=== PATIENT | male | born 1930 | race Caucasian/White ===

== ENCOUNTER → 2016-09-30 | Outpatient (CLI) | payer OTHER ==
[~2016-09-30] MED LIST: ASA81BEC PO; AVODART0.5 MG PO; CALCIUM CITRATE PO; CLARITIN10 M2 PO; FISH OIL 1,001000 M2 PO; GERITOL COMPLE1 EAC2 PO; L-LYSINE1000 M1 PO; LISINOPRIL10 MG PO; OSTEO BI-FLEX1 EAC2 PO; PRAVACHOL40 MG PO; SLO-NIACIN750 MG PO; VITAMIN D1000 UNI1 PO; VITAMINC500 PO
== END ==
LOC: RAD 09:26
DX: M47.816 Spondylosis without myelopathy or radiculopathy, lumbar region (principal); M54.89 Other dorsalgia

== ENCOUNTER → 2016-10-16 | Outpatient (CLI) | payer OTHER ==
[~2016-10-16] VITALS: Ht 177.8 cm; Wt 86.2 kg
--- NOTE | ~2016-10-16 | HPC ---
[facility] [place] [address] PAIN MANAGEMENT CONSULTATION Name: JOSE DUPREE Taisha Room #: REG [facility] Holden.#: [id number] Admission: 10/16/16 Attend Phys: Sue Mtz MD Discharge: Date of : 30 Report #: [id number] THIS REPORT FOR: //name// CC: Sue Cox MD DATE OF SERVICE: 10/16/2016 PRIMARY CARE PHYSICIAN: Roman Cox M.D. CHIEF COMPLAINT: "Pain in my right leg, in the thigh with numbness, weakness and tenderness". HISTORY OF PRESENT ILLNESS: The patient is an 86-year-old gentleman who has been referred to the pain clinic for evaluation. The patient states that he has noted some pain and discomfort in his right anterior thigh. He notes that this is weak. He has not fallen. He rates it as a 10/10. Pain is worse with standing. He notes that the pain started at the end of August, very close to the beginning of September. He denies any trauma. He denies any similar history in the past. No change in bowel or bladder function. ALLERGIES: No known drug allergies. MEDICATIONS: Niacin 750 mg tablets, vitamin D, Claritin 10 mg, aspirin 81 mg, ascorbic acid 500 mg, fish oil, calcium, glucosamine chondroitin, Lysine 1 gram, iron/Geritol, pravastatin 40 mg, Zestril 10 mg and Avodart 0.5 mg. PAST MEDICAL HISTORY: Hypertension and hypercholesterolemia. PAST SURGICAL HISTORY: Lump from his chest 35 years ago. 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 Denies use of tobacco. Denies use of alcoholic beverages. Denies use of illegal drugs. REVIEW OF SYSTEMS: A 14-point review of systems questionnaire indicates generally good health, weakness in the right anterior thigh. Otherwise, unremarkable. LABORATORY DATA: MRI of the lumbar spine, dated 10/05/2016, reveals L3-L4 right dqcleyt-xy-ndvanqd disk protrusion present, but this protrusion contacts and superiorly displaces the exiting right L3 nerve root. The L3 neural foramen shows mild encroachment. The canal is without stenosis. Thecal sac is 10.0 cm AP. L4-L5 disk bulge presented without disk protrusion. Mild effacement of bilateral exiting neural foramen. Thecal sac 1.0 cm AP. Lumbar spine series, [facility] [address] [place] [address] PAIN MANAGEMENT CONSULTATION Name: JOSE DUPREE Room #: REG [facility]#: [id number] Admission: 10/16/16 Attend Phys: Sue Mtz MD Discharge: Date of : 30 Report #: [id number] dated 09/30/2016, reveals mild multilevel lumbar spondylosis with slight anterolisthesis of L4 on L5. No compression fractures. PHYSICAL EXAMINATION: VITAL SIGNS: Blood pressure 135/72, pulse 64, respiratory rate 16 and room air saturation is 98%. Height 5 feet 10, weight 86 kg and BMI 27. NEUROLOGIC: The patient walks with a slight antalgic gait, regarding his right leg. He complains of decreased sensation to pinprick, light touch and muscle strength in the anterior L3-L4 distribution on the right. IMPRESSION: Lumbar radiculopathy with right L3-L4 distribution numbness, tingling and weakness as a result of compression on the nerve from a lumbar disk protrusion. RECOMMENDATIONS: We discussed the treatment options with the patient. A model was used to indicate the area of probable pathology. Risks and benefits of an epidural steroid injection were discussed. Possible complications which could include but are not limited to bleeding, infection, headache and muscle weakness were discussed and the patient elects to proceed. PROCEDURE NOTE: The patient was placed in the prone position. Fluoroscopy was used to identify the L3-L4 interspace. This area had been sterilely prepped with Betadine and infiltrated with 0.25% bupivacaine. Total of 80 mg Depo-Medrol, 40 mg triamcinolone and 2 mL of 0.25% bupivacaine was injected. The patient tolerated the procedure well. There were no complications. His pain decreased from 10 to 5 at the time of discharge. A 16 seconds fluoroscopy time was used. We would like to thank you for letting us participate in his care. We hope he continues to improve. By: [id number] Sue Mtz MD /shady
[2016-10-16 10:12] VITALS: BP 135/72
== END ==
LOC: PAIN 06:44
DX: M51.16 Intervertebral disc disorders with radiculopathy, lumbar region (principal); I10 Essential (primary) hypertension; E78.00 Pure hypercholesterolemia, unspecified

== ENCOUNTER → 2016-11-08 | Outpatient (CLI) | payer OTHER ==
[~2016-11-08] VITALS: Ht 177.8 cm; Wt 81.6 kg
[~2016-11-08] MED LIST changes: +HYDROCODONE-AP1 EAC6 PO
--- NOTE | ~2016-11-08 | HPC ---
[facility] [place] [address] PAIN MANAGEMENT CONSULTATION Name: LEIAJOSE Taisha Room #: REG [facility] HoldenKay#: [id number] Admission: 11/08/16 Attend Phys: Sue Mtz MD Discharge: Date of : 30 Report #: [id number] THIS REPORT FOR: //name// CC: Sue Cox DATE OF SERVICE: 11/08/2016 PRIMARY CARE PHYSICIAN: Roman Cox M.D. FOLLOWUP COMPLAINT: Continued pain in the right leg, was improved, but still painful and weak. FOLLOWUP HISTORY: The patient is an 86-year-old gentleman who has been referred to the pain clinic for evaluation. An MRI indicated L3 neural foraminal encroachment, L3-L4 right foraminal disk protrusion present. This contacts and superiorly displaces the exiting L3 nerve root. The patient continues to have pain and discomfort in the anterior thigh on the right side. He notes weakness and difficulty ambulating because of this. Pain is quite problematic. He feels that another injection could be and would be helpful and agrees to proceed. RECOMMENDATIONS: We discussed treatment options with the patient. Risks and benefits of an epidural steroid injection using the transforaminal approach was described to the patient. Possible complications of the procedure were reviewed and the patient elects to proceed. PROCEDURE NOTE: The patient was placed in the prone position. He noted severe pain and discomfort while lying flat. We attempted to do a transforaminal epidural steroid injection with the patient on his left lateral decubitus position. This was somewhat problematic. We again had the patient lie on the table in the prone position. His back was sterilely prepped in the L3-L4 interspace. A 20-gauge spinal needle was then advanced using the transforaminal approach. After appropriate placement, a total of 2 mL of 0.25% bupivacaine was injected. The patient states that his pain began rapidly to decrease. He was then given a total of 80 mg Depo-Medrol and an additional 3 mL of 0.25% bupivacaine. The patient remained in the pain clinic for an appropriate amount of time. His pain totally resolved in that dermatomal area. He remained from 11 o'clock to 2 o'clock at which time the numbing medicine has totally worn out and the patient was able to walk. He left with zero pain. He [place] [address] PAIN MANAGEMENT CONSULTATION Name: JOSE DUPREE Room #: REG [facility] Hunter#: [id number] Admission: 11/08/16 Attend Phys: Sue Mtz MD Discharge: Date of : 30 Report #: [id number] We would like to thank you for letting us participate in his care. We hope he continues to improve. By: [id number] Sue Mtz MD /nt
[2016-11-08 10:29] VITALS: BP 142/78
== END | disposition home or self-care (01) ==
LOC: PAIN 06:34
DX: M51.36 Other intervertebral disc degeneration, lumbar region (principal); M54.16 Radiculopathy, lumbar region; M48.06 Spinal stenosis, lumbar region

== ENCOUNTER → 2016-11-20 | Outpatient (CLI) | payer OTHER ==
[~2016-11-20] VITALS: Ht 177.8 cm; Wt 84.6 kg
--- NOTE | ~2016-11-20 | HPC ---
[facility] [address] [place] [address] PAIN MANAGEMENT CONSULTATION Name: LEIAJOSE Taisha Room #: REG [facility] NeenaKayRadha.#: [id number] Admission: 11/20/16 Attend Phys: Sue Mtz MD Discharge: Date of : 30 Report #: [id number] THIS REPORT FOR: //name// CC: Sue Cox DATE OF SERVICE: 11/20/2016 FOLLOWUP COMPLAINT: Still having some pain in my right leg and the physical therapy is helping. FOLLOWUP HISTORY: The patient is an 86-year-old gentleman, who has been seen in the pain clinic because of L3 lumbar radicular pain down into the right anterior thigh. He has undergone a transforaminal epidural steroid injection and noted some improvement. He feels that overall things are improving. He is able to ambulate better. He has not fallen since we saw him last. He continues to wear a back support and finds that this is helpful. He is undergoing physical therapy and continues to do physical therapy exercises at home. He still has pain and discomfort. He finds that the hydrocodone medication makes things more tolerable. He continues to increase his level of activity. He is not having bowel or bladder dysfunction. He is taking MiraLax to help keep his bowels regular. PHYSICAL EXAMINATION: Blood pressure 121/56, pulse 70, respiratory rate 16, room air saturation 98%. Height 5 feet 10 inches, weight 177 pounds, BMI is 26. The patient continues to have some pain in the right anterior thigh area. He is having less pain then prior to his treatments. He feels at this juncture to continue with his medications of hydrocodone would be reasonable and may consider another injection in the future. Pain is still problematic with standing, walking and improves when he lies down flat. IMPRESSION: 1. Lumbar radiculopathy with right L3-L4 distribution with numbness, tingling and weakness. Secondary to compression of the nerve from a lumbar disk protrusion. 2. Arthritis. RECOMMENDATIONS: We discussed treatment options with the patient. At this juncture, we will continue with a conservative approach. He will continue to use hydrocodone 5/325 one p.o. every 4-6 hours p.r.n. pain. He will continue to do the exercises provided by the physical therapist. He will consider another epidural steroid injection [place] [address] PAIN MANAGEMENT CONSULTATION Name: JOSE DUPREE Room #: REG MAYDA ChaudharyFlorencia#: [id number] Admission: 11/20/16 Attend Phys: Sue Mtz MD Discharge: Date of : 30 Report #: [id number] We would like to thank you for letting us participate in his care. We hope he continues to improve. <ELECTRONICALLY SIGNED> By: Sue Mtz MD 11/21/16 0820 1212 1418 MD angelina Lopez
[2016-11-20 10:09] VITALS: BP 121/56
== END ==
LOC: PAIN 06:47
DX: M54.16 Radiculopathy, lumbar region (principal); M19.90 Unspecified osteoarthritis, unspecified site; F10.21 Alcohol dependence, in remission

== ENCOUNTER 2018-07-09 04:59 | Inpatient (IN) | payer OTHER ==
[~2018-07-09] VITALS: Ht 177.8 cm; Wt 86.2 kg
--- NOTE | ~2018-07-09 | H ---
[facility] [place] [address] HISTORY AND PHYSICAL Name: JOSE DUPREE Taisha Room #: 429-P [facility] IN .R.#: [id number] Admission: 07/09/18 Attend Phys: Roman Cox MD Discharge: Date of : 30 Report #: [id number] THIS REPORT FOR: //name// CC: Roman Cox DATE OF SERVICE: 07/09/2018 CHIEF COMPLAINT: Witnessed seizure. HISTORY OF PRESENT ILLNESS: Information is obtained from the medical record. 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 He was unresponsive at times, he was grasping for breath, his neck was stiff. His behavior lasted for a period of time and then turned into being combative and confused behavior. By that time the paramedics came. His did not actually see tonic-clonic movements. When he came to the Emergency Department, his combativeness ceased and he resumed his regular mental status. The patient himself had no recollection of the event until he "woke up" in the Emergency Room. Evaluation there was negative. He had never had a seizure disorder, stroke or head injury prior to this event. Admission was indicated for further evaluation. Note is made that he has never had an observed seizure, does not drink alcohol, and was not taking any medications that lower the seizure threshold. There were perhaps 2 episodes of questionable events, recent episode of syncope of about a year in the past after which he was seen by a neurologist and an EEG was performed. Those results are not immediately available, but his recalls them being unremarkable. There was perhaps the same or a second episode several months ago where he was sitting on the ground for a prolonged period of time and then suddenly had a near syncopal episode where he sort of laid over on his side, but did not completely lose consciousness. He recovered his strength, then got up and drove himself home. PAST MEDICAL HISTORY: He has an elevated blood pressure for which he takes low dose 10 mg lisinopril, elevated cholesterol on 80 mg of pravastatin and urinary frequency for which he takes Avodart daily. MEDICATIONS: Lisinopril 10 mg daily, pravastatin 80 mg daily, Avodart 1 tablet daily. FAMILY HISTORY: Noncontributory. SOCIAL HISTORY: He lives in an independent apartment in a senior facility with his of many years. He stopped smoking in the 1960s. He drinks an occasional glass of wine. He is retired from [employer] [place] [address] HISTORY AND PHYSICAL Name: JOSE DUPREE Room #: 429-P [facility] IN ..#: [id number] Admission: 07/09/18 Attend Phys: Roman Cox MD Discharge: Date of : 30 Report #: [id number] REVIEW OF SYSTEMS: Negative except for developing a reddish discoloration on the bridge of his nose and getting splotches of redness in his face. OBJECTIVE: GENERAL: He was awakened from sleep. HEENT: Unremarkable. LUNGS: Clear. CARDIOVASCULAR: Heart tones are normal and regular. ABDOMEN: Soft, nontender, without hepatosplenomegaly or masses. EXTREMITIES: There is no edema in extremities. There are no focal neurological deficits. The patient was not ambulated by me at the time of the examination. Remarkable laboratory is significant for a lactic acid level from 5:00 this morning when he first arrived at the Emergency Room that is elevated at 2.9. It was repeated 12 hours later after receiving IV fluids and is now 0.5. Hemoglobin is mildly low at 13.0. Drug screen is negative. Urinalysis is negative. 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 Dr. 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 Chest x-ray shows minor strand-like atelectasis in the left lung base when compared with one of 5 years ago. ASSESSMENT: The patient appears to have had a seizure in the middle of the night based on his "postictal" behavior with the paramedics that cleared in the Emergency Room, the 's description of his stiffness and gasping for breath and the elevated lactic acid level soon after his arrival in the Emergency Room that normalized when repeated 12 hours later. Neurology consultation has been obtained and EEG is to be done. ADDITIONAL DIAGNOSIS: Mildly elevated TSH. By: [id number] Roman Cox MD /nt
[2018-07-09 05:01] VITALS: BP 143/65
[2018-07-09 05:23] LABS: ABSOLUTE NEUTROPHILS 3.5 thou/uL (1.4-8.2); BASOPHILS 0.4 % (0.0-2.0); EOSINOPHILS 3.3 % (0.0-3.0); HEMATOCRIT 38.7 % (42.0-52.0); LYMPHOCYTES 35.3 % (24.0-44.0); MCH 32.4 pg (26.0-34.0); MCHC 33.5 g/dL (28.0-37.0); MCV 96.7 fL (80.0-100.0); MONOCYTES 6.7 % (1.0-8.0); PLATELET COUNT 182 thou/uL (150-400); POLYS 54.3 % (36.0-66.0); RDW 13.7 % (10.5-14.5); WBC 6.5 thou/uL (4.0-11.0)
[2018-07-09 05:36] LABS: ANION GAP 11 mmol/L (7-16); BUN 25 mg/dL (7-18); CALCIUM 9.1 mg/dL (8.5-10.1); CHLORIDE 106 mmol/L (98-107); CO2 25 mmol/L (21-32); CREATININE 1.2 mg/dL (0.7-1.3); GLUCOSE 111 mg/dL (74-106); POTASSIUM 3.8 mmol/L (3.5-5.1); SODIUM 142 mmol/L (136-145)
[2018-07-09 05:45] LABS: ALBUMIN 3.7 g/dL (3.4-5.0); SGOT 19 U/L (15-37); SGPT 22 U/L (30-65); TOTAL BILIRUBIN 0.4 mg/dL (<0.1-1.0); TOTAL PROTEIN 6.7 g/dL (6.4-8.2); TROPONIN-I <0.06 ng/mL (<0.06)
[2018-07-09 06:06] LABS: URINE BILIRUBIN NEGATIVE (Negative); URINE BLOOD NEGATIVE (Negative); URINE CLARITY CLEAR; URINE COLOR YELLOW; URINE GLUCOSE-RANDOM* NEGATIVE (Negative); URINE KETONES NEGATIVE (Negative); URINE LEUKOCYTES-REFLEX NEGATIVE (Negative); URINE NITRITE-REFLEX NEGATIVE (Negative); URINE PROTEIN (DIPSTICK) NEGATIVE (Negative); URINE SPECIFIC GRAVITY >= 1.030 (1.005-1.035); URINE UROBILINOGEN 0.2 E.U./dl (0.2-1.0)
[2018-07-09 06:14] LABS: AMP/METHAMP Negative (Negative); BARBITURATES Negative (Negative); BENZODIAZEPINES Negative (Negative); COCAINE Negative (Negative); METHADONE Negative (Negative); OPIATES Negative (Negative); PCP Negative (Negative)
[2018-07-09 07:03] LABS: LARGE PLATELETS RARE
--- NOTE | 2018-07-09 09:21 | EKG ---
[place] [address] NOW! 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 : 1930 Requested By: Angelika Timmons Order Number: [id number] MD: Christ Parker Measurements Intervals [place] Rate: 80 P: 23 NE: 213 QRS: -46 QRSD: 143 T: 35 QT: 394 QTc: 455 Interpretive Statements Sinus rhythm Borderline prolonged NE interval RBBB and LAFB Compared to ECG 11/28/2013 09:29:02 Atrial premature complex(es) no longer present Electronically Signed On 07-09-2018 9:21:00 AUTO LOCATOR by Christ Parker [email or web address] <ELECTRONICALLY SIGNED> By: Christ Parker MD, [facility] 07/09/18 0921 9 Christ Parker MD, [facility] /EPI
[2018-07-09 11:04] VITALS: BP 134/54
[2018-07-09 11:35] VITALS: BP 116/61
--- NOTE | 2018-07-09 14:39 | NUR ---
ASSESSMENT-PT LIVES IN A SR APT WITH HIS WHO USES A WALKER WITH A SEAT TO GET AROUND. PT WALKS ON HIS OWN AND DOES HIS OWN ADLS. PT DRIVES BUT DOES NOT. FRIEND AT BEDSIDE DROVE TO HOSPITAL. THEY HAVE A CLEANING PERSON. THEY SHARE THE COOKING AND LAUNDRY. HAS 2 NIECES IN [place]. PT HAS NOT HAD ANY HH SERVICES. FOLLOWING TO ASSIST WITH DC PLANNING.
[2018-07-09 15:15] VITALS: BP 126/71
[2018-07-09 16:28] VITALS: BP 101/47
[2018-07-09 20:15] VITALS: BP 124/48
[2018-07-10 04:19] VITALS: BP 118/47
--- NOTE | 2018-07-10 06:42 | NUR ---
ASSUMED CARE AT 1900, ASSESSMENT COMPLETED. NO PAIN, NAUSEA, OR SOB. PLACED UNDER SEIZURE PRECAUTIONS, NEURO ASSESSMENT NORMAL. PT IMPULSIVE OUT OF BED MULTIPLE TIMES, ATTEMPTING TO USE URINAL AND GETTING LESS THAN 50 ML OUT. BLADDER SCAN SHOWED >500 ML, OBTAINED ORDER TO STRAIGHT CATH BUT ONLY ABLE TO COLLECT 350 ML. STOPPED IV FLUIDS. REPEAT BLADDER SCAN THIS AM SHOWED ONLY 320 ML, WILL ASK DAY SHIFT TO REPEAT WITH AM VS, POSSIBLE CATH AGAIN. NO OTHER CONCERNS, WILL CONTINUE TO MONITOR.
[2018-07-10 08:16] VITALS: BP 125/59
--- NOTE | 2018-07-10 14:04 | NUR ---
ASSUMED CARE THIS AM, SHIFT ASSESSMENT DONE, MEDS GIVEN, VSS. BLADDER SCAN DONE THIS AM, NO RESIDUAL FOUND. PATIENT WAS ABLE TO URINATE 250 MLS OF URINE THIS AM. HAD A BOWEL MOVEMENT. FAMILY MEMBERS PRESENT AT BEDSIDE. NO CONCERNS EXPRESSED AT THIS TIME BY THE PATIENT. WILL CONTINUE TO ASSESS AND ASSIST WITH ADLs NEEDED.
--- NOTE | 2018-07-10 16:22 | NUR ---
NIECE PONCHO HERE AND ASKING ABOUT ASSISTED LIVING RESOURCES FOR PT AND HIS . THIS WAS PROVIDED TO HER. SHE AND HER SISTER ASSIST PT AND WITH THEIR AFFAIRS.
[2018-07-10 16:35] VITALS: BP 139/59
[2018-07-10 18:21] VITALS: BP 134/72
--- NOTE | 2018-07-10 19:24 | NUR ---
PT CAME IN TO UNIT AT 1800H. PT BROUGHT IN BY STAFF ON WHEELCHAIR. PT ACCOMPANIED BY . PT A&O X4. PT STATES NO PAIN. PT ORIENTED TO UNIT AND EDUCATED TO USE CALL LIGHT. PT HAS NO S/S OF DISTRESS. PT'S PHYSICIAN VISITED AND REQUESTED ORTHSTATIC BP OVERNIGHT. PT REPORT PASSED ON TO ONCOMING STAFF. PT CURRENTLY ON SZ PRECAUTION AND CONT TO BE MONITORED FOR SAFETY.
[2018-07-10 19:57] VITALS: BP 128/68
--- NOTE | 2018-07-11 03:53 | NUR ---
PATIENT ALERT AND ORIENTED X4. UP WITH SBA TO BATHROOM. PATIENT HAS PERIODS OF FORGETFULNESS AND IS UP IN THE ROOM W/O ASSIST. DENIES PAIN. ORTHOSTATIC BLOOD PRESSURE FOLLOWS AT 2020: LYING - 134/72 PULSE 71; SITTING - 128/68 PULSE 61; STANDING - 128/68 PULSE 61. BLADDER SCANNED AT 2030 - 75ML. THIS NURSE SPOKE TO DR. WARREN AND REPORTED THE PREVIOUS INFORMATION. AT BEDSIDE THROUGHOUT THE NIGHT. RESTING QUIELTY. WILL MONITOR.
[2018-07-11 08:45] VITALS: BP 110/73
[2018-07-11 09:29] LABS: HEMATOCRIT 37.8 % (42.0-52.0); HEMOGLOBIN 12.8 gm/dL (14.0-18.0); MCH 32.2 pg (26.0-34.0); MCHC 33.8 g/dL (28.0-37.0); MCV 95.4 fL (80.0-100.0); RBC 3.96 mil/uL (4.50-6.00); RDW 13.7 % (10.5-14.5); WBC 7.4 thou/uL (4.0-11.0)
--- NOTE | 2018-07-11 09:31 | NUR ---
PATIENT B/P ORTHO LAYIN/55, PULSE 56 SITTIN/65, PULSE 57 STANDIN/73, PULSE 86
--- NOTE | 2018-07-11 09:34 | NUR ---
PATIENT CARE WAS ASSUMED AT 0715.PATIENT IS ALERT AND ORIENTED X4, PT HAS SOME FORGETFULNESS.PATIENT HAS NO PAIN AT THIS TIME.IV IS INTACT, AND SALINE LOCKED.PT IS RESTING IN BED AT THIS TIME.PATIENT IS UP AB [place].CALL LIGHT,PHONE, AND PERSONAL BELONGINGS ARE WITHIN REACH.WILL CONTINUE TO MONITOR PATIENT.
[2018-07-11 09:40] LABS: ALBUMIN 3.5 g/dL (3.4-5.0); ANION GAP < 0 mmol/L (7-16); BUN 29 mg/dL (7-18); CALCIUM 9.4 mg/dL (8.5-10.1); CHLORIDE 104 mmol/L (98-107); CO2 29 mmol/L (21-32); CREATININE 1.2 mg/dL (0.7-1.3); GLUCOSE 131 mg/dL (74-106); POTASSIUM 3.8 mmol/L (3.5-5.1); SGOT 20 U/L (15-37); SGPT 25 U/L (30-65); SODIUM 131 mmol/L (136-145); TOTAL BILIRUBIN 0.3 mg/dL (<0.1-1.0); TOTAL PROTEIN 6.6 g/dL (6.4-8.2)
--- NOTE | 2018-07-11 10:28 | NUR ---
RN AGREED WITH BARN HAND ASSESSMENT.
[2018-07-11 10:32] VITALS: BP 110/73
--- NOTE | 2018-07-11 11:22 | NUR ---
PATIENT WAS DISCHARGED TO GO HOME WITH SELF CARE. IV WAS TAKEN OUT GAUZE AND TAPE IS IN PLACE.PATIENT WAS IN STABLE CONDITION UPON DISCHARGE.D/C PAPER WORK WAS GIVEN TO PATIENT,PATIENT HAS NO QUESTIONS AT THIS TIME.NO MEDICATIONS WERE PRESCRIPTED AT THIS TIME.PATIENT WAS TAKEN TO CAR VIA W/C BY NURSE.FRIEND OF FAMILY TOOK PATIENT HOME.
--- NOTE | 2018-07-20 09:55 | EEG ---
[facility] [place] [address] ELECTROENCEPHALOGRAM Name: JOSE DUPREE Room #: 222-P [facility] IN M.R.#: [id number] Admission: 07/09/18 Attend Phys: Roman Cox MD Discharge: 07/11/18 Date of : 30 Report #: [id number] THIS REPORT FOR: //name// CC: Roman Cox DATE OF SERVICE: 07/09/2018 This patient is being evaluated for seizure and altered mental status. EEG was done by placing the electrode by standard 10-20 system of electrode placement. Both referential and sequential montages were used for recording. Background activity in this patient's EEG is about 9 Hz and 30 microvolts. It is a symmetrical activity. The patient became drowsy that is associated with bilateral slowing. Photic stimulation was unremarkable. Throughout the record, no active epileptiform activity was noticed. IMPRESSION: This patient's EEG does not demonstrate any clear-cut epileptiform activity. EEG can be normal in a patient with a seizure disorder. Therefore, clinical correlation is recommended. <ELECTRONICALLY SIGNED> By: Pete Cleaning MD 07/20/18 0955 1747 1753 Pete Cleaning MD /nt
== END 2018-07-11 11:15 | disposition home or self-care (01) | DRG 101 ==
LOC: ER 04:59 → EROBS 08:08 → 4E 08:08 → ENTRNSPT 07-10 17:51 → SICU 07-10 18:14
PROVIDERS: Student in an Organized Health Care Education/Training Program; ADMIT Internal Medicine
DX: R56.9 Unspecified convulsions (principal); E03.9 Hypothyroidism, unspecified; G47.52 REM sleep behavior disorder; R33.9 Retention of urine, unspecified; Z79.82 Long term (current) use of aspirin; Z79.899 Other long term (current) drug therapy
CPT/HCPCS: 10084; 15002

== ENCOUNTER → 2019-04-09 | Outpatient (CLI) | payer OTHER | LOC: MRI 10:46 | DX: I63.9 Cerebral infarction, unspecified (principal); R56.9 Unspecified convulsions ==